=== PATIENT | male | born 1995 | race Caucasian/White ===

== ENCOUNTER 2018-10-04 21:07 | Observation (INO) | payer OTHER ==
[~2018-10-04] VITALS: Ht 175.3 cm; Wt 71.5 kg
[~2018-10-04 21:07] MED LIST: CEFOTETAN 2 GM ONE; NEOSTIGMINE 1 MG/ML, 10ML ONE
--- NOTE | 2018-10-04 21:28 | NUR ---
PT AMBULATED TO ROOM FROM TRIAGE WITH STEADY GAIT. REPORTS LOW ABD PAIN X1 DAY "CRAMPING", PT REPORTS N/V. AFEBRILE IN TRIAGE. PT A/OX4, BREATHING E/U. PT AWAITING MD GOMEZ.
[2018-10-04] MEDS ORDERED: ONDANSETRON 2MG/ML, 2ML IVPush ONE ×2 (21:30→22:30)
[2018-10-04] MEDS ORDERED: ACETAMINOPHEN 500 MG TABLET PO ONE (21:30)
[2018-10-04] MEDS ORDERED: ONDANSETRON 2MG/ML, 2ML ONE ×2 (21:32→22:31)
[2018-10-04] MEDS ORDERED: ACETAMINOPHEN 500 MG TABLET ONE (21:32)
--- NOTE | 2018-10-04 21:32 | NUR ---
PT RECIEVED ZOFRAN PER ORDERS, SEE EMAR. PT TO PROVIDE URINE SAMPLE.
--- NOTE | 2018-10-04 21:46 | NUR ---
PT TO RESTROOM WITH STEADY GAIT FOR URINE COLLECTION, URINE SENT TO LAB.
[2018-10-04 21:49] LABS: BASOPHILS # (AUTO) 0.03 x10^3/uL (0-0.1); BASOPHILS % (AUTO) 0 % (0-1); EOSINOPHILS % (AUTO) 0 % (1-7); LYMPHOCYTES # (AUTO) 1.23 x10^3/uL (1-3.4); LYMPHOCYTES % (AUTO) 12 % (22-44); MD NO; MEAN CORPUSCULAR HEMOGLOBIN 31.3 pg (27.5-34.5); MEAN CORPUSCULAR HGB CONC 34.8 g/dL (33.2-36.2); MEAN CORPUSCULAR VOLUME 89.8 fL (81-97); MEAN PLATELET VOLUME 11.1 fL (7.4-10.4); MONOCYTES # (AUTO) 0.46 x10^3/uL (0.2-0.8); MONOCYTES % (AUTO) 5 % (2-9); NEUTROPHILS % (AUTO) 83 % (42-75); PLATELET COUNT 202 x10^3/uL (130-400); RED BLOOD COUNT 5.22 x10^6/uL (4.38-5.82); RED CELL DISTRIBUTION WIDTH 12.5 % (9.4-14.8)
--- NOTE | 2018-10-04 22:00 | NUR ---
PT REPORTS NAUSEA HAS IMPROVED BUT "I FEEL DEHYDRATED." PT AWAITING CT.
[2018-10-04 22:01] LABS: ALANINE AMINOTRANSFERASE 22 U/L (12-78); ALBUMIN 4.7 g/dL (3.4-5.0); ANION GAP 10 mmol/L (5-15); CALCIUM 9.2 mg/dL (8.5-10.1); CHLORIDE 103 mmol/L (98-107); CREATININE 1.16 mg/dL (0.7-1.3)
[2018-10-04 22:04] LABS: ALKALINE PHOSPHATASE 116 U/L (45-117); BILIRUBIN,TOTAL 0.9 mg/dL (0.2-1.0)
--- NOTE | 2018-10-04 22:11 | NUR ---
MD NOTIFIED OF PT REPORTING NAUSEA RETURN, AWAITING ORDERS.
[2018-10-04 22:14] LABS: MICROSCOPIC INDICATED
[2018-10-04 22:16] LABS: CULTURE INDICATED? NO
--- NOTE | 2018-10-04 22:19 | NUR ---
PT TO CT.
[2018-10-04] MEDS ORDERED: MORPHINE SULFATE 4 MG/ML, 1ML ONE ×2 (22:31→23:29)
[2018-10-04] MEDS: MORPHINE SULFATE 4 MG/ML, 1ML IVPush PRN ×2 (22:34→23:32)
--- NOTE | 2018-10-04 22:50 | NUR ---
PT RECIEVED MEDS PER ORDRS, SEE EMAR. PT REPORTS IMPROVED PAIN AND NAUSEA AFTER MEDS. AWAITING CT RESULTS. VSS. WILL MONITOR. CALL LIGHT IN REACH.
[2018-10-04] MEDS ORDERED: OMNIPAQUE 350 MG/ML, 100ML BOTTLE ONE (22:55)
[2018-10-04] MEDS ORDERED: CEFTRIAXONE PMX 1GM/50ML 50 ML ONE (23:12)
--- NOTE | 2018-10-04 23:27 | NUR ---
REPORT TO TERRY ECHOLS. PT TO GO TO ROOM.
[2018-10-04] MEDS ORDERED: CEFTRIAXONE PMX 1GM/50ML 50 ML IV ONE (23:30)
[2018-10-04] MEDS ORDERED: METRONIDAZOLE PMX 500MG/100ML 100 ML IV ONE (23:30)
--- NOTE | 2018-10-04 23:34 | NUR ---
PT GIVEN SECOND DOSE OF MORPHINE PER ORDERS, SEE EMAR.
[2018-10-04 23:50] VITALS: BP 135/77
[2018-10-05] MEDS ORDERED: ONDANSETRON 2MG/ML, 2ML IVPush PRN (00:30)
[2018-10-05] MEDS ORDERED: LACTATED RINGERS 1,000 ML IV SCH (00:30)
[2018-10-05] MEDS ORDERED: morphine SULFATE 10 MG/ML, 1ML IVPush PRN (00:30)
[2018-10-05 04:04] VITALS: BP 129/67
[2018-10-05] MEDS ORDERED: BUPIVACAINE/PF-EPI 0.5% 1:200K ONE (05:32)
[2018-10-05] MEDS ORDERED: BUPIVACAINE/PF-EPI 0.5% 1:200K INFIL ONE (05:43)
[2018-10-05] MEDS ORDERED: MIDAZOLAM 1 MG/ML, 2ML ONE (06:34)
[2018-10-05] MEDS ORDERED: FENTANYL PF 250 MCG/5ML ONE (06:34)
[2018-10-05] MEDS ORDERED: NEOSTIGMINE 1 MG/ML, 10ML ONE (06:36)
[2018-10-05] MEDS ORDERED: GLYCOPYRROLATE 0.2MG/1ML, 5ML ONE (06:36)
[2018-10-05] MEDS ORDERED: CEFOTETAN 2 GM ONE (06:36)
[2018-10-05] MEDS ORDERED: HALOPERIDOL 5 MG/ML IV PRN (07:00)
[2018-10-05] MEDS ORDERED: hydrALAzine 20 MG/ML, 1ML IV PRN (07:00)
[2018-10-05] MEDS ORDERED: MEPERIDINE/PF 25MG/0.5ML IVPush PRN (07:00)
[2018-10-05] MEDS ORDERED: ALBUTEROL SULFATE 2.5 MG/3 ML NPPB PRN (07:00)
[2018-10-05] MEDS ORDERED: PROMETHAZINE 25 MG/ML, 1ML IV PRN (07:00)
[2018-10-05] MEDS ORDERED: FENTANYL PF 100 MCG/2ML IV PRN (07:00)
[2018-10-05] MEDS ORDERED: ACETAMINOPHEN 325 MG TABLET PO PRN (07:00)
[2018-10-05] MEDS ORDERED: HYDROmorphone 2 MG/ML, 1ML IVPush PRN (07:00)
[2018-10-05] MEDS ORDERED: OXYcodone 5 MG/5 ML ORAL.SOL UDC PO PRN (07:00)
[2018-10-05] MEDS ORDERED: ROCURONIUM 10MG/ML,5ML ONE (07:05)
[2018-10-05] MEDS ORDERED: LIDOCAINE 2% 100MG/5ML SYRINGE ONE (07:05)
[2018-10-05] MEDS ORDERED: PROPOFOL 10 MG/ML, 20ML ONE (07:05)
[2018-10-05] MEDS ORDERED: ONDANSETRON 2MG/ML, 2ML ONE (07:05)
[2018-10-05] MEDS ORDERED: KETOROLAC 30 MG/1 ML ONE (07:05)
[2018-10-05] MEDS ORDERED: DEXAMETHASONE 4 MG/ML, 1ML ONE (07:05)
[2018-10-05] MEDS ORDERED: OXYcodone 5 MG/5 ML ORAL.SOL UDC ONE (07:20)
[2018-10-05] MEDS ORDERED: FENTANYL PF 100 MCG/2ML ONE (07:20)
[2018-10-05 08:20] VITALS: BP 124/73
[2018-10-05] MEDS ORDERED: OXYcodone/APAP 5/325MG TABLET PO PRN (09:00)
[2018-10-05] MEDS ORDERED: OXYC-302 PO (10:47)
[2018-10-05] MEDS ORDERED: POLY17PO5 PO (10:48)
== END 2018-10-05 13:49 | disposition home or self-care (01) ==
LOC: ED 22:36 → 4NOR 23:05 → INTOOBSV 23:05 → ED 23:05 → 4NOR 23:42 → DCLOUNGE 10-05 13:31
PROVIDERS: ADMIT Colon & Rectal Surgery; ATTEND Colon & Rectal Surgery
DX: K35.80 Unspecified acute appendicitis (principal); F17.200 Nicotine dependence, unspecified, uncomplicated
CPT/HCPCS: 36415; 44970; 74177; 80053; 81001; 83690; 85025; 88304; 96365; 96366; 96367; 96375; 96376; 99285; G0378; J0696; J1100; J1885; J2250; J2405; J2704; J2710; J3010; J3490; J7120; Q9967